=== PATIENT | female | born 1975 | race Caucasian/White ===

== ENCOUNTER → 2017-10-16 | Outpatient (CLI) | payer OTHER ==
[~2017-10-16] MED LIST: AMOX500; AZIT250 PO; CITA20 PO; IBUP800 PO
[2017-10-16 16:23] LABS: Specimen Source URINE
[2017-10-17 10:33] LABS: Candida species (DNA Probe) Negative (NEGATIVE); G. vaginalis (DNA Probe) Positive (NEGATIVE); T. vaginalis (DNA Probe) Negative (NEGATIVE)
[2017-10-17 14:25] LABS: Source Urine
== END | disposition home or self-care (01) ==
LOC: LAB 16:15 → LAB SHORT 16:15
PROVIDERS: Family Medicine
DX: Z11.3 Encounter for screening for infections with a predominantly sexual mode of transmission (principal); L29.8 Other pruritus
CPT/HCPCS: 87480; 87491; 87510; 87591; 87660

== ENCOUNTER → 2020-04-24 | Outpatient (CLI) | payer OTHER | END | disposition home or self-care (01) | LOC: LAB SHORT 09:46 → PLD 09:46 | DX: D22.61 Melanocytic nevi of right upper limb, including shoulder (principal); D22.5 Melanocytic nevi of trunk | CPT/HCPCS: 88305 ==

== ENCOUNTER 2021-03-05 06:29 | Emergency (ER) | payer BC ==
[~2021-03-05] VITALS: Ht 154.9 cm; Wt 72.6 kg
== END 2021-03-05 07:27 | disposition home or self-care (01) ==
LOC: ER 06:29
DX: U07.1 COVID-19 (principal); Z88.1 Allergy status to other antibiotic agents
CPT/HCPCS: 99283

== ENCOUNTER 2021-03-10 15:45 | Inpatient (IN) | payer BC ==
[~2021-03-10] VITALS: Ht 154.9 cm; Wt 71.1 kg
--- NOTE | 2021-03-11 05:52 | NUR ---
SHIFT SUMMARY PATIENT ALERT AND ORIENTED. HAD NO COMPLAINTS OF PAIN. IS TACHYPNIC AND SHORT OF BREATH AT REST. ON 6 LITERS O2 VIA OXYMIZER SATING AT 91%. NO ACUTE ISSUES NOTED. IV PATENT AND FLUSHED. BED IN LOWEST POSITION WITH WHEELS LOCKED. CALL LIGHT WITHIN REACH. REPORT GIVEN TO ONCOMING RN.
--- NOTE | 2021-03-11 18:28 | NUR ---
PT ALERT AND ORIENTED X4. IND TO BSC. MADE NO C/O OF SOB/CHEST PAIN THIS SHIFT, KEEPING SATS ABOVE 90%, DIM IN BASES WITH MILD COUGH.
--- NOTE | 2021-03-12 05:06 | NUR ---
SHIFT SUMMARY A/O, ABLE TO MAKE NEEDS KNOWN. COOPERATIVE WITH CARE. CALLS AND ANSWERS QUESTIONS APPROPRIATELY. NO C/O PAIN/DISCOMFORT. APPEARED TO REST MUCH OF THE NIGHT. INDEPENDENT TO BSC. REMAINS ON 6L VIA OXYMIZER. NO ACUTE CHANGES NOTED OVERNIGHT. BED REMAINS IN LOWEST POSITION. CALL LIGHT AND BELONGINGS WITHIN REACH. CONTINUE WITH CURRENT PLAN OF CARE. REPORT TO ONCTESSA RN.
[2021-03-12 14:53] LABS: Hematocrit 41.6 % (33.0-51.0); Hemoglobin 13.2 g/dL (11.5-16.0)
[2021-03-12 15:18] LABS: Anion Gap 9 mmol/L (6-16); Blood Urea Nitrogen 21 mg/dL (8-24); Bun/Creatinine Ratio 36.5 (12.0-20.0); CO2, Blood 26 mmol/L (21-32); Calcium, Blood 8.9 mg/dL (8.5-10.1); Chloride, Blood 104 mmol/L (98-108); Creatinine, Blood 0.58 mg/dL (0.40-1.00); Glomerular Filtration Rate >60 (60-); Glucose, Blood 166 mg/dL (70-99); Potassium, Blood 3.5 mmol/L (3.5-5.5); Sodium, Blood 139 mmol/L (136-145)
--- NOTE | 2021-03-12 18:57 | NUR ---
SHIFT SUMMARY PT WITH NO CHANGE TODAY WITH RESPIRATORY STATUS. REMAINS ON 5L/M BY NC. UP TO BSC INDEPENDENTLY. WILL REPORT CONDITION TO ONCOMING SHIFT.
--- NOTE | 2021-03-12 19:28 | NUR ---
SHIFT SUMMARY: PT A/O X4. IND IN ROOM. REMAINS ON 02 6 LPM VIA OXIMIZER. PT HAS HAD NO ACUTE CONCERNS THIS SHIFT.
--- NOTE | 2021-03-13 03:35 | NUR ---
IT GENERALIST SUMMARY ALERT AND ORIENTED. LUNG SOUNDS DIMINISHED AND WET TO AUSCULTATION. VOICED HAS "PNEUMONIA" DUE TO COVID. HAS BEEN RESTING WITH FEW INTERRUPTIONS SINCE HS WITH O2 AT 6L/MIN PER OXIMIZER. HOB ELEVATED ABOUT 20 DEGREES - VOICED HX CEREBRAL VERTEBRAE HX BROKEN ASN IS UNCOMFORTABLE TO ELEVATE MORE THAN THAT. CALL LIGHT IN REACH
--- NOTE | 2021-03-13 10:38 | NUR ---
PATIENT OUT OF BED WITH STAND BY ASSIST TO BRUSH TEETH AND WALK AROUND ROOM. BIOX 82-85% ON 5L/NC WITH ACTIVITY AND PATIENT RESPIRATIONS LABORED. WHEN PATIENT SITTING ON SIDE OF BED, TITRATED BACK TO 3L/NC WITH BIOX 91%.
[2021-03-13] MEDS ORDERED: DEXA6 PO (11:54)
[2021-03-13] MEDS ORDERED: VITAMIN D31000 UNI1 PO (11:55)
--- NOTE | 2021-03-13 12:52 | NUR ---
dc note: pt educated on dc materials. pt vu. pt iv removed w/no s/s of infection. pt escorted via [place] to pov by [employer] and abdulaziz peng. pt picked her up. medications faxed to [facility].
== END 2021-03-13 12:53 | disposition home or self-care (01) | DRG 177 ==
LOC: ER 15:45 → ERHOLD 17:58 → MEDS 20:31
PROVIDERS: Internal Medicine; ADMIT Hospitalist
PROC: 8E0ZXY6 Isolation (ICD-10-PCS; principal; 2021-03-10)
PROC: 3E0333Z Introduction of Anti-inflammatory into Peripheral Vein, Percutaneous Approach (ICD-10-PCS; 2021-03-10)
DX: U07.1 COVID-19 (principal); J12.82 Pneumonia due to coronavirus disease 2019; J96.01 Acute respiratory failure with hypoxia; Z88.1 Allergy status to other antibiotic agents; J30.9 Allergic rhinitis, unspecified; Z79.899 Other long term (current) drug therapy
CPT/HCPCS: 36415; 71045; 80048; 85014; 85018; 96374; 99285-25; A9270; J1100; J1650

== ENCOUNTER → 2023-04-03 | Outpatient (CLI) | payer OTHER ==
[~2023-04-03] MED LIST changes: +DEXA6 PO; +VITAMIN D31000 UNI1 PO
== END | disposition home or self-care (01) ==
LOC: LAB 15:15 → LAB SHORT 15:15
DX: N39.0 Urinary tract infection, site not specified (principal)
CPT/HCPCS: 87077; 87086; 87147; 87186

== ENCOUNTER → 2023-07-11 | Outpatient (CLI) | payer OTHER | LOC: LAB SHORT 16:58 → LAB 16:58 | DX: N39.0 Urinary tract infection, site not specified (principal) | CPT/HCPCS: 87086; 87147 ==

== ENCOUNTER → 2023-07-29 | Outpatient (CLI) | payer OTHER | LOC: LAB SHORT 15:14 → LAB 15:14 | DX: N39.0 Urinary tract infection, site not specified (principal) | CPT/HCPCS: 87086 ==

== ENCOUNTER → 2023-08-22 | Outpatient (CLI) | payer OTHER | END | disposition home or self-care (01) | LOC: LAB 15:43 → LAB SHORT 15:43 | DX: N39.0 Urinary tract infection, site not specified (principal) | CPT/HCPCS: 87086 ==

== ENCOUNTER → 2023-08-27 | Outpatient (CLI) | payer OTHER | LOC: LAB 15:17 → LAB SHORT 15:17 | DX: N39.0 Urinary tract infection, site not specified (principal) | CPT/HCPCS: 87086 ==

== ENCOUNTER → 2024-08-17 | Outpatient (CLI) | payer OTHER ==
[2024-08-24 20:50] LABS: HPV HIGH RISK BY TMA Not Detected; HPV SOURCE Endocervical
== END ==
LOC: LAB SHORT 09:00 → LAB 09:00
PROVIDERS: Family Medicine
DX: Z01.419 Encounter for gynecological examination (general) (routine) without abnormal findings (principal)
CPT/HCPCS: 87624; G0123